=== PATIENT | female | born 1985 | race Caucasian/White ===

== ENCOUNTER 2020-06-05 05:17 | Emergency (ER) | payer OTHER ==
[~2020-06-05 05:17] MED LIST: FLONASE 0.05% N16 GM; IBUPROFEN600 MG PO; PREDNISONE 50 M50 MG PO; TESSALON PERLE100 MG PO
[2020-06-05 05:46] LABS: HEMOGLOBIN 13.5 gm/dl (12.3-15.3); RED BLOOD COUNT 4.99 M/UL (4.00-5.10); WHITE BLOOD COUNT 11.8 K/UL (4.5-11.0)
[2020-06-05 05:57] LABS: BUN/CREATININE RATIO 11 (0-10)
[2020-06-05] MEDS ORDERED: FLOMAX 0.4 MG0.4 MG PO (08:05)
[2020-06-05] MEDS ORDERED: ZOFRAN ODT 4 MG4 MG PO (08:05)
[2020-06-05] MEDS ORDERED: PERCOCET 5-3251 EACH PO (08:05)
== END 2020-06-05 09:10 | disposition home or self-care (01) ==
LOC: ER1 05:17
PROVIDERS: Emergency Medicine
DX: N13.2 Hydronephrosis with renal and ureteral calculous obstruction (principal); Z88.2 Allergy status to sulfonamides
CPT/HCPCS: 80053; 81001; 84703; 85025; 87086; 99284; J2270; J2405

== ENCOUNTER 2020-08-24 17:13 | Emergency (ER) | payer OTHER ==
[~2020-08-24 17:13] MED LIST changes: +FLOMAX 0.4 MG0.4 MG PO; +PERCOCET 5-3251 EACH PO; +ZOFRAN ODT 4 MG4 MG PO
[2020-08-24] MEDS ORDERED: AMOXICILLIN875 MG PO (17:35)
== END 2020-08-24 17:45 | disposition home or self-care (01) ==
LOC: ER1 17:13
DX: J02.9 Acute pharyngitis, unspecified (principal); Z88.2 Allergy status to sulfonamides
CPT/HCPCS: 99282

== ENCOUNTER 2021-03-25 04:26 | Emergency (ER) | payer OTHER ==
[~2021-03-25 04:26] MED LIST changes: +AMOXICILLIN875 MG PO
[2021-03-25] MEDS ORDERED: DIFLUCAN150 MG PO (07:40)
[2021-03-26 23:11] LABS: CHLAMYDIA TRACHOMATIS, NAA Negative (Negative); NEISSERIA GONORRHOEAE, NAA Negative (Negative)
== END 2021-03-25 08:09 | disposition home or self-care (01) ==
LOC: ER1 04:26
PROVIDERS: Physician Assistant
DX: N76.0 Acute vaginitis (principal); Z88.2 Allergy status to sulfonamides
CPT/HCPCS: 81001; 84703; 87210; 99283

== ENCOUNTER 2022-01-15 19:54 | Emergency (ER) | payer OTHER ==
[~2022-01-15 19:54] MED LIST changes: +DIFLUCAN150 MG PO
[2022-01-16] MEDS ORDERED: LOTRIMIN CREAM45 GM PV (01:39)
== END 2022-01-16 01:52 | disposition home or self-care (01) ==
LOC: ER1 19:54
DX: B36.9 Superficial mycosis, unspecified (principal)
CPT/HCPCS: 82962; 99283